=== PATIENT | female | born 1955 | race Two or more races ===

== ENCOUNTER 2025-06-10 08:00 | Day surgery (SDC) | payer OTHER ==
[~2025-06-10 08:00] MED LIST: CARAFATE1 GM PO; CIPRO500 MG PO; COZAAR100 MG; COZAAR100 MG PO; EVISTA60 MG PO; INTESTINEX680 M1 PO; LEVOTHYROXINE125 MCG PO; LEVSIN0.125 MG PO; LOSARTAN POTAS100 MG PO; METRONIDAZOLE500 MG PO; PANTOPRAZOLE SO20 MG PO; SYNTHROID125 MCG PO
[2025-06-10] MEDS ORDERED: ONDANSETRON HCL 2 MG/ML VIAL IV ONE (13:00)
[2025-06-10] MEDS ORDERED: MIDAZOLAM HCL 2 MG/2 ML VIAL IV ONE (13:00)
[2025-06-10] MEDS ORDERED: DIPHENHYDRAMINE HCL 50 MG/ML VIAL 1ML IV ONE (13:00)
[2025-06-10] MEDS ORDERED: fentaNYL CITRATE 50 MCG/ML AMPUL IV PUSH ONE (13:00)
== END 2025-06-10 14:15 | disposition home or self-care (01) ==
LOC: AMB-ENDOS 08:00
PROVIDERS: ATTEND Colon & Rectal Surgery
DX: K63.5 Polyp of colon (principal); K57.30 Diverticulosis of large intestine without perforation or abscess without bleeding; Z88.2 Allergy status to sulfonamides